=== PATIENT | female | born 1960 | race Caucasian/White ===

== ENCOUNTER 2018-07-01 20:27 | Emergency (ER) | payer OTHER ==
[~2018-07-01] VITALS: Ht 160 cm; Wt 90.7 kg
[~2018-07-01 20:27] MED LIST: CYCL10 PO; HYDACE5 PO; HYDR1TAB94 PO; IBUP800 PO
[2018-07-01] MEDS ORDERED: Mupirocin22 GM TOP (23:07)
== END 2018-07-01 23:30 | disposition home or self-care (01) ==
LOC: ER 20:27
DX: L08.9 Local infection of the skin and subcutaneous tissue, unspecified (principal); F17.200 Nicotine dependence, unspecified, uncomplicated; Z79.891 Long term (current) use of opiate analgesic
CPT/HCPCS: 99282

== ENCOUNTER 2022-09-16 10:00 | Day surgery (SDC) | payer OTHER ==
[~2022-09-16] VITALS: Ht 165.1 cm; Wt 96.8 kg
[~2022-09-16 10:00] MED LIST changes: +FISH OIL 1,2001 EAC7 PO; +LOSA50 PO; +Mupirocin22 GM TOP
[2022-09-16 11:11] VITALS: BP 158/75
--- NOTE | 2022-09-16 11:13 | NUR ---
Ambulatory in Day Surgery History, Chart, Medications and Allergies reviewed before start of procedure.Patient confirms NPO status and agrees with scheduled surgery. Lungs clear T/O to Auscultation. Patient States Post-Procedure ride home has been arranged.
--- NOTE | 2022-09-16 12:34 | NUR ---
09/16/22 1234 [address] [place] HISTORY, CHART, MEDICATIONS AND ALLERGIES REVIEWED BEFORE START OF PROCEDURE. PATIENT CONFIRMS NPO STATUS AND AGREES WITH SCHEDULED PROCEDURE. 3-LEAD EKG REVIEWED WITH PHYSICIAN PRIOR TO START OF PROCEDURE. MONITOR INTACT WITH CONTINUOUS PULSE OXIMETRY,CAPNOGRAPHY, 3-LEAD EKG, INTERMITTENT BP. SUPPLEMENTAL O2 TO BE TITRATED THROUGHOUT PROCEDURE TO MAINTAIN O2 SATURATION ABOVE 90%. PATIENT DETERMINED TO BE ASA APPROPRIATE FOR PROPOFOL SEDATION PRIOR TO START OF PROCEDURE BY DR. NAM.
[2022-09-16 12:58] VITALS: BP 110/91
--- NOTE | 2022-09-16 12:58 | NUR ---
REPORT RECIEVED. DR NAM AT BEDSIDE. PT SITTING UP IN BED TALKING TOLERING PO FLUIDS. VSS ON ROOM AIR
[2022-09-16 13:02] VITALS: BP 122/84
--- NOTE | 2022-09-16 13:13 | NUR ---
Patient up to Ambulate independently. Gait steady. Discharge instructions reviewed with patient. Patient verbalizes understanding. Copy given to patient to take home. Discharged via wheelchair to private car for ride home.
== END 2022-09-16 13:18 | disposition home or self-care (01) ==
LOC: ORSCMMR 10:00 → ORD 11:15 → ORSCMMR 13:18
PROVIDERS: Internal Medicine Gastroenterology
PROC: 0DBN8ZX Excision of Sigmoid Colon, Via Natural or Artificial Opening Endoscopic, Diagnostic (ICD-10-PCS; principal; 2022-09-16 11:15)
PROC: 0DBL8ZX Excision of Transverse Colon, Via Natural or Artificial Opening Endoscopic, Diagnostic (ICD-10-PCS; principal; 2022-09-16 11:15)
PROC: 0DBH8ZX Excision of Cecum, Via Natural or Artificial Opening Endoscopic, Diagnostic (ICD-10-PCS; principal; 2022-09-16 11:15)
PROC: 0DBB8ZX Excision of Ileum, Via Natural or Artificial Opening Endoscopic, Diagnostic (ICD-10-PCS; principal; 2022-09-16 11:15)
PROC: 0DBK8ZX Excision of Ascending Colon, Via Natural or Artificial Opening Endoscopic, Diagnostic (ICD-10-PCS; principal; 2022-09-16 11:15)
DX: R19.7 Diarrhea, unspecified (principal); D12.0 Benign neoplasm of cecum; D12.3 Benign neoplasm of transverse colon; K57.30 Diverticulosis of large intestine without perforation or abscess without bleeding; I10 Essential (primary) hypertension; Z79.899 Other long term (current) drug therapy
CPT/HCPCS: 88305; J2704; J7120

== ENCOUNTER → 2022-10-26 | Outpatient (CLI) | payer OTHER | END | disposition home or self-care (01) | LOC: PLD 14:46 → LAB SHORT 14:46 | DX: N83.00 Follicular cyst of ovary, unspecified side (principal) | CPT/HCPCS: 88304 ==